=== PATIENT | female | born 1985 | race Caucasian/White ===

== ENCOUNTER 2018-03-26 06:55 | Inpatient (IN) | payer BC, SELFPAY ==
[2014-07-31 07:37] VITALS: BMI 43.2
[2018-03-26] MEDS: Lactated Ringers 1,000 ML 50 ML IV ×4 (08:00→23:38)
[2018-03-26] MEDS: Oxytocin 30 units/NS 500 ml 30 UNITS/500 ML IV.SOLN IV (08:15)
[2018-03-26 08:27] LABS: Hematocrit 35.4 % (37-47); Hemoglobin 11.2 g/dl (12.0-15.0); Mean Corp Hgb Conc 31.6 g/gl (32-36); Mean Corpuscular Volume 82.1 fL (81-99); Platelet Count 95 K/mm3 (150-450); RBC Distribution Width CV 14.2 % (11.6-14.6); RBC Distribution Width SD 42.9 fl (35.1-43.9); Red Blood Count 4.31 M/mm3 (4.2-5.4); White Blood Count 4.1 K/mm3 (4.4-11.0)
[2018-03-26 08:28] LABS: Scan Indicated on CBC? Y/N YES- FLAGS NOTED
[2018-03-26 08:41] VITALS: BMI 45.3
[2018-03-26 08:42] LABS: Differential Comment SCANNED
[2018-03-26] MEDS: 0.9% Normal Saline 100 ML IV.SOLN. INTRA-UTER (09:15)
[2018-03-26 10:07] LABS: AST(SGOT) 10 U/L (15-37); Alanine Aminotransfer ALT/SGPT 14 U/L (13-56); Creatinine, Serum 0.44 mg/dL (0.55-1.02); EST Glomerular Filtration Rate 175 mL/min (>60); Est Glom Filt Rate - Afr Amer 211 mL/min (>60); Estimated Creatinine Clearance 149.03 ml/min; Uric Acid 4.3 mg/dL (2.6-6.0)
[2018-03-26 11:47] LABS: Hematocrit 36.5 % (37-47); Hemoglobin 11.6 g/dl (12.0-15.0); Mean Corp Hgb Conc 31.8 g/gl (32-36); Mean Corpuscular Volume 81.7 fL (81-99); Mean Platelet Vol. 12.5 fl (6.2-12.0); Platelet Count 106 K/mm3 (150-450); RBC Distribution Width CV 14.1 % (11.6-14.6); RBC Distribution Width SD 42.3 fl (35.1-43.9); Red Blood Count 4.47 M/mm3 (4.2-5.4); White Blood Count 4.5 K/mm3 (4.4-11.0)
[2018-03-26 11:48] LABS: Scan Indicated on CBC? Y/N YES- FLAGS NOTED
[2018-03-26 11:51] LABS: International Normalized Ratio 0.9; Prothrombin Time (Protime)PT. 12.6 SECONDS (11.7-14.9)
[2018-03-26 11:52] LABS: Partial Thromboplast Time 27.2 Seconds (24.1-36.2)
[2018-03-26 12:03] LABS: Differential Comment SCANNED
[2018-03-26 12:06] LABS: Bedside Glucose 99 mg/dL (70-110)
[2018-03-26 13:05] LABS: Bedside Glucose 98 mg/dL (70-110)
[2018-03-26] MEDS: fentaNYL-bupivacaine (epidural) 100 ML BAG EPIDURAL ×3 (14:15→22:46)
[2018-03-26] MEDS: Acetaminophen 325 MG Tablet PO ×2 (16:30→21:18)
--- NOTE | 2018-03-26 16:36 | PCM.HP.OB ---
History Date of Admission: 03/26/18 Final SIMON: 04/11/18 Final SIMON Source: US <20 weeks Gestational age: 37 Weeks and 5 Days History of this : This is a 33 year-old, 4 para 2011 who presents at 37-5/7 weeks gestation which is gestational hypertension and class A1 gestational diabetes for induction of labor. She denies any visual disturbances. She just has not felt well this week and has had an intermittent mild headache but no persistent severe headache. She has had no epigastric pain but is just had some mild nausea and decreased appetite. Her has been complicated to date by gestational diabetes, but she has been well controlled with diet. A history of anxiety and depression, obesity with BMI greater than 40, hyperlipidemia, migraine headaches, allergic rhinitis Allergies Gadolinium-MRI Contrast Medium [CONTRAST] Allergy (Verified 03/26/18 08:27) Rash Latex, Natural Rubber Allergy (Verified 03/26/18 08:27) Rash Home Medications: Home Medications Fioricet 325 mg PRN PRN 07/27/14 Vits 1 tab DAILY 07/27/14 Zantac 150 mg BID 07/27/14 Zyrtec 10 mg PRN PRN 07/27/14 Ibuprofen [Motrin] 800 mg PO TID PRN PRN #60 tablet 08/02/14 Oxycodone HCl/Acetaminophen [Percocet 5/325] 1 - 2 tablet PO Q6H PRN PRN #10 tablet 08/02/14 Celexa 20 03/26/18 Prevacid 30 03/26/18 Tylenol 1,000 03/26/18 Smoking Status: Never smoker Alcohol: None Number of Fetus(es): 1 Heart Tracing: Normal baseline, moderate variability, spontaneous accelerations, no decelerations. TOCO Analysis: Irregular contractions History Past Pregnancies: Past Pregnancies Delivery Date Name GA/Weeks Outcome Route Weight Infant Gender Labor Length Anesthesia Delivery Location Provider FOB Expected Infant Delivery Method: Spontaneous Vaginal Review of Systems Constitutional: Reports: Anorexia. Denies: Chills, Fever Eyes: Denies: Blurred vision Cardiovascular: Denies: Chest Pain Respiratory: Reports: Cough. Denies: Shortness of Breath Skin: Denies: Rash Physical Exam General: Alert, Cooperative, No apparent distress Cardiovascular: Regular rate Lungs: Normal air movement Abdomen: Soft, Non Tender, Non-Distended, Gravid, Appropriate for Gestational Age Extremities:: Other - Edema, 1+, 2+ DTRs, no clonus Neurological: Cranial nerves II-XII grossly intact Assessment/Plan This is a 33 year-old, para 4 para 2011 who presents at 37-5/7 weeks gestation for induction of labor due to gestational hypertension. No evidence of preeclampsia with severe features. Labs are normal. She has a history of gestational thrombocytopenia and her platelets have been trending down and are stable today. Patient will have Pitocin and Gonzalez induction of labor along with artificial rupture membranes if needed. May have epidural if desires. May weight is less than 4500 g weekly and by ultrasound, pelvis is clinically adequate to expect vaginal delivery. Will monitor for symptoms of severe preeclampsia. In addition, will check blood sugars intermittently though they have been well controlled with diet during the .
[2018-03-26 18:06] LABS: Bedside Glucose 67 mg/dL (70-110)
[2018-03-26 18:06] LABS: Bedside Glucose 70 mg/dL (70-110)
[2018-03-26] MEDS: Ondansetron 4 MG/2 ML Vial IV (19:25)
[2018-03-26 20:56] LABS: Bedside Glucose 80 mg/dL (70-110)
[2018-03-26 21:41] LABS: Bedside Glucose 82 mg/dL (70-110)
[2018-03-26 22:41] LABS: Bedside Glucose 94 mg/dL (70-110)
[2018-03-26] MEDS: Loratadine 10 MG Tablet PO (23:38)
[2018-03-26 23:41] LABS: Bedside Glucose 96 mg/dL (70-110)
[2018-03-27 00:41] LABS: Bedside Glucose 74 mg/dL (70-110)
--- NOTE | 2018-03-27 02:12 | PLAC_PTH ---
PATIENT: CHIQUITA SHAW LOC: [facility] U#:[id number] AGE/SX: 33/F ROOM: WP016 RE03/26/[address]: Dr. Chana Fajardo MD : 1985 BED: 1 DIS: 03/28/2018 SPEC #: [id number] RECD: 03/27/18 03:10 STATUS: RUTH REDominick #: [id number] CANDY: 03/27/18 02:[address]: Chana Fajardo DEPT: SURGICAL PATHOLOGY RECD BY: Billy Correa ENTERED: 03/28/18 07:59 SP TYPE: PLACENTA OTHR DR: Dr. Eric Eckert MD Tissues: Placenta, NOS Procedures: Surgery Specimen Level V HEADER OPERATION: Vaginal delivery PRE-OP DIAGNOSIS: Hypertension, diabetic TISSUE SUBMITTED: Placenta MICROSCOPIC DIAGNOSIS [place]dez placenta (427 gm): Umbilical cord - trivascular with early acute funisitis. Placental membranes - minimal decidual chronic inflammation. Placental disc - organizing intraparenchymal hemorrhage, Yanna-Earl change and mildly increased intraparenchymal fibrin plaques and focal nonspecific chronic villitis. AM:ariana 03/29/18 MICROSCOPIC DESCRIPTION Slides are reviewed. GROSS DESCRIPTION SPECIMEN: PLACENTA / CLINICAL INFORMATION: A. Weight: 2.806 kg B. Gestational Age: 37 weeks C. Sex: Female PLACENTAL WEIGHT (POST FIXATION): 427 gm PLACENTAL DIMENSIONS: 17 x 17 x 2.5 cm PLACENTAL SHAPE: Usual ovoid PLACENTAL WEIGHT FOR GESTATIONAL AGE: Within 10-99th percentile MEMBRANES - Present A. Insertion: Marginal B. Site of rupture from edge: 3 cm from edge of placental disc C. Color of membrane: Urena-armijo D. Abnormalities: None UMBILICAL CORD - Present A. Color: Urena-armijo B. Insertion: Near central and received in two fragments. C. Length: 52 cm D. Diameter: 1.5 cm E. Number of vessels: Three F. Abnormalities: None PLACENTAL DISC - Present A. Color of surface: Urena-armijo B. surface abnormalities: None C. Maternal cotyledons: Intact with minimal tears D. Attached retro placental clot: No clot E. Cut surface: Dark red and spongy F. Lesions: Sections reveal a firm, urena-white lesion measuring 1 x 1 cm in greatest dimension. G. Separate clot: Absent SECTIONS SUBMITTED: 1. Membrane roll and umbilical cord ( end inked black) 2. Placental disc, and maternal surfaces, lesion 3. Placental disc, and maternal surfaces 4. Placental disc, and maternal surfaces AM:ariana 03/28/18 TC:3 CPT: 14381
[2018-03-27] MEDS: Oxytocin 30 units/NS 500 ml 30 UNITS/500 ML IV.SOLN 334 UNITS IV (02:15)
--- NOTE | 2018-03-27 02:33 | PCM.OB.VAG ---
Vaginal Delivery Maternal Presentation: Medically Indicated Induction Method of Induction: Pitocin, Gonzalez Bulb, Amniotomy Medical Reason for Induction: Gestational Hypertension Amniotic Membrane Rupture Type: Artificial Amniotic Fluid Description: Clear Final SIMON: 04/11/18 Gestational age: 37 Weeks and 6 Days Date of Procedure: 03/27/18 Pre-Operative Diagnosis: Labor Post-Operative Diagnosis: Same Surgery/ Procedure Performed: Spontaneous Vaginal Delivery Type of Anesthesia: Epidural Description of Procedure: A vigorous female was delivered CRISS over a second-degree perineal laceration. A loose nuchal cord x2 was easily reduced the remainder the was delivered with maternal pushing and gentle traction only in less than 15 seconds. The Pitocin infusion was initiated for active management of the third stage. The cord was clamped and cut after 1 minute. The was attended to by the waiting nursing staff. The placenta was delivered spontaneously and intact. The cervix and vagina were intact. The second-degree perineal laceration was repaired with 3-0 Vicryl suture in a running standard fashion. Sponge and needle counts were correct. A vaginal sweep was completed by me. Presentation: CRISS Placental Delivery Description: Spontaneous Placenta Disposition: [facility] Cord Vessel Description: 3 Vessels Nuchal Cord Compression: Without compression Cord Entanglement: Around neck x 2, loose Drain: Gonzalez to straight drain - Pushed out during second stage of labor. Estimated Blood Loss: 300 cc Infant A gender: Female Episiotomy Description: None Laceration: 2nd degree Medications given after delivery: IV Pitocin Complications: None
[2018-03-27] MEDS: Ibuprofen 600 MG Tablet PO ×3 (03:21→16:26)
[2018-03-27] MEDS: Acetaminophen 500 MG Tablet 1000 MG PO (03:21)
[2018-03-27] MEDS: Oxytocin 30 units/NS 500 ml 30 UNITS/500 ML IV.SOLN 167 UNITS IV (03:21)
[2018-03-27 03:39] LABS: Pathology Specimen OB SEE PATHOLOGY REPORT
[2018-03-27 03:46] LABS: Bedside Glucose 98 mg/dL (70-110)
[2018-03-27] MEDS: 0.9% Saline Lock 10 ML Syringe IV (04:45)
[2018-03-27 06:12] VITALS: BP 126/68; PULSE 72; RESP 16; TEMP 36.1
[2018-03-27 08:00] VITALS: BP 123/69; PULSE 55; RESP 18; TEMP 36.5
[2018-03-27] MEDS: Citalopram 20 MG Tablet PO (08:23)
[2018-03-27 11:35] VITALS: BP 145/76; PULSE 59; RESP 18; TEMP 36.1
[2018-03-27 16:49] VITALS: BP 144/84; PULSE 68; RESP 18; TEMP 36.3
[2018-03-27] MEDS: Phenazopyridine 95 MG Tablet 190 MG PO (17:18)
[2018-03-27 20:30] VITALS: BP 137/70; PULSE 74; RESP 18; TEMP 36.7
[2018-03-28] MEDS: Ibuprofen 600 MG Tablet PO ×2 (00:36→08:50)
[2018-03-28 00:40] VITALS: BP 147/84; PULSE 63; RESP 18; TEMP 37
--- NOTE | 2018-03-28 00:50 | NURSING ---
Pt vital signs obtained 0040 and BP elevated systolic at 147. This RN took another BP on right arm and right forearm for comparsion and systolic was 155 and 165 moments later. At this time, pt was writhing in pain rating it 8/10 from bladder spasms so plan to reassess BP at a later time when pain medication has been effective. pt was instructed to ambulate to the bathroom to void after bladder was palpated and felt distended. pt aware that the urethra/perineum will be sore and painful after the stewart bulb came out during delivery completely inflated. charge nurse aware of bladder spasms and no further interventions at this time.
[2018-03-28] MEDS: Phenazopyridine 95 MG Tablet 190 MG PO ×2 (03:15→08:48)
[2018-03-28 04:35] VITALS: BP 122/77; PULSE 77; RESP 18; TEMP 36.7
[2018-03-28 08:00] VITALS: BP 141/69; PULSE 61; RESP 16; TEMP 36.6; O2SAT 96
[2018-03-28 08:10] VITALS: BP 134/73; PULSE 56
--- NOTE | 2018-03-28 09:13 | PCM.PN.OB ---
Subjective: pain well controlled, average lochia, Some feeling of bladder spasms and leaking of urine. Not much sensation to void, but had similar PP course w/ previous delivery. Denies BRADFORD/visual changes, epigastric pain - Physical Exam General: Alert, Cooperative, No apparent distress Extremities: Edema - 2+ Vital Signs Temp Pulse Resp BP 98.1 F 77 18 122/77 H 03/28/18 04:35 03/28/18 04:35 03/28/18 04:35 03/28/18 04:35 Oxygen Delivery Method Room Air Weight: 116.12 kg Body Mass Index (BMI) 45.3 Intake and Output for Last 24 Hours 03/26/18 03/27/18 03/28/18 23:59 23:59 23:59 Intake Total 2876 / 2876 502 / 502 Output Total 500 / 500 1000 / 1000 Balance 2376 / 2376 -498 / -498 Medical Necessity - Tobacco Use Smoking Status: Never smoker Assessment/Plan PPD#1 gets HTN, bp well controlled> 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 BP stable since delivery. Patient understands the risk of preeclampsia . She agrees to monitor her blood pressures at home and contact the office if they are persistently above 150/100 or above 170/105 acutely. Addition, she understands symptoms of preeclampsia and when to call or return to the emergency room. If it is breast-feeding and doing well. Patient would like to go home today. Gestational diabetes class A1-does not need to further monitor blood sugars, will recommend 2-hour GTT after 6-week visit. gestational thrombocytopenia-recheck platelets today before she leaves just to ensure that they are stable or trending up. Will need to follow these
--- NOTE | 2018-03-28 09:23 | DCINST_ITS ---
Discharge Diet: No Restrictions Discharge Activity: Return to Normal Activity, May not drive while taking narcotic pain medications., May Shower May resume sexual activity in: 4-6 weeks Additional Activity Instructions:: Nothing in the vagina for 4-6 weeks. You may return to work/school in 6 weeks. Call your doctor if your incision/area has: Continuous Slow Oozing, Sudden Increased Bleeding, Increased Pain/ Swelling, Increased Redness, Foul Smelling Discharge Additional Instructions: If you experience any of the following, contact your healthcare provider. * Bleeding that soaks a pad every hour for 2 hours * Fever 100.4 or higher * Unrelieved incision or abdominal pain * Swelling, redness, discharge or bleeding from your incision or episiotomy site * Your incision begins to separate * Problems urinating (including inability to urinate or burning while urinating). * Visual changes * Severe headache * Flu-like symptoms * Pain or redness in one of both of your breasts * Pain, warmth, tenderness or swelling in your legs, especially the calf area * Frequent nausea and vomiting * Symptoms of depression or anxiety If you experience any of the following, call 911 or go to the nearest Emergency Room. * Chest pain * Problems breathing * Seizure activity * Partial or complete paralysis of a body part, slurred speech, weakness or drooping of the face, or a sudden inability to walk or hold your balance Monitor your blood pressure 2-3 times a day and call the office if persistently >150/95, or immediately if > 170/105 Allergies/Adverse Reactions: Allergies Gadolinium-MRI Contrast Medium [CONTRAST] Allergy (Verified 03/26/18 08:27) Rash Latex, Natural Rubber Allergy (Verified 03/26/18 08:27) Rash Medications to take at Discharge Vits 1 tab DAILY 07/27/14 Zyrtec 10 mg PRN PRN 07/27/14 Prevacid 30 03/26/18 Tylenol 1,000 03/26/18 Citalopram [Celexa] 20 mg PO DAILY tablet 03/28/18 Famotidine [Pepcid] 20 mg PO BID PRN tablet 03/28/18 Hydrocodone/Acetaminophen [[place] 5-325 Tablet] 1 each PO Q6H PRN PRN 4 Days #10 tablet 03/28/18 Ibuprofen [Motrin] 800 mg PO TID PRN PRN #60 tablet 03/28/18 Loratadine [Claritin] 10 mg PO DAILY PRN PRN tablet 03/28/18 The following prescriptions were given: Hydrocodone/Acetaminophen [[place] 5-325 Tablet] 1 each PO Q6H PRN PRN 4 Days #10 tablet PRN Reason: Severe Pain (-11/17) Ibuprofen [Motrin] 800 mg PO TID PRN PRN #60 tablet PRN Reason: Pain Please Follow Up With: Chana Fajardo MD - [phone] When: Call to make an appointment with your doctor in 6 weeks. Schedule a follow up for your blood pressure at the end of this week or in 1 week. Primary Care Physician: Eric Eckert [Primary Care Provider] - Test Results: Test results from this visit will be discussed in further detail at your follow- up appointment, if applicable.
[2018-03-28] MEDS: Citalopram 20 MG Tablet PO (10:17)
[2018-03-28 11:09] LABS: Hematocrit 31.8 % (37-47); Hemoglobin 9.9 g/dl (12.0-15.0); Mean Corp Hgb Conc 31.1 g/gl (32-36); Mean Corpuscular Hgb 26.1 pg (27.0-32.0); Mean Corpuscular Volume 83.9 fL (81-99); Mean Platelet Vol. 13.6 fl (6.2-12.0); Platelet Count 91 K/mm3 (150-450); RBC Distribution Width CV 14.3 % (11.6-14.6); RBC Distribution Width SD 42.7 fl (35.1-43.9); Red Blood Count 3.79 M/mm3 (4.2-5.4); White Blood Count 4.5 K/mm3 (4.4-11.0)
[2018-03-28 11:11] LABS: Scan Indicated on CBC? Y/N NO
[2018-03-28] MEDS: Acetaminophen 500 MG Tablet 1000 MG PO (13:03)
[2018-03-28 14:15] VITALS: BP 131/75; PULSE 85; RESP 18; TEMP 36.6; O2SAT 96
--- NOTE | 2018-03-28 14:21 | CASEMGMT ---
Addendum entered and electronically signed by Bianka Orellana 03/28/18 17:19: Reviewed and approve CLINICAL LAB SCIENTIST student internet marketing analyst documentation below. -ALAN Castillo, [employer] Original Note: Social Work Labor and Delivery Referral date:03/27/2018 Referral time: 0750 Referred by: Mikki Guerra Date of Intervention: 03/28/2018 Time of Intervention: 11am Reason for Referral: history of maternal depression History obtained from: medical record, mother of baby (MICHELLE) Renee Del Cid Household composition: MOB is living with ARVIND Romreo and two daughters Bayron who is 10 years old and Janae who is 3 years old. MOB reports no issues with domestic violence or safety concerns. Patient's parent/guardian status: FOB and MOB have been together for over 15 years. MOB and FOB have three children together after the of baby Grady and do not have other children from previous relationships. Medical History: MICHELLE is G4:P2 to 3 after of baby. MICHELLE has previous diagnoses of anxiety, depression, and gestational diabetes. Baby Grady was born 03/[birth year]/18 at 6lbs and 6oz with scores of 8 and 9. care began at 7 weeks. 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 Supplies: MICHELLE reports to have car seat, crib, clothing, diapers, wipes, bottles, formula, and a breast pump. Childcare/Caregiver(s): MICHELLE plans to be primary caregiver. ARVIND will also be caregiver. Transportation: MOB expressed no issues with transportation. Programs/Agencies Involved: MOB and FOB are not involved with any agencies due to high income. MOB denied [facility] referral. Children Services/Legal Issues: There was no discussion or indication of previous or current legal issues or involvement with children services. Behavioral Health Issues: Mental Health History: MICHELLE has been diagnosed with depression and takes Celexa daily as treatment. MICHELLE was not on medication since 2013 but near [place] during MOB requested to restart medication. MICHELLE also reports to have anxiety and the Celexa prescription is also treatment. MICHELLE has Ativan as back-up for anxiety. Denies use of this prescription during . MOB denies any past or present thoughts of self harm, harming others, or attempts for suicide. Substance Abuse History: MOB denies any substance abuse history. Family History: MOB did not discuss or identify any concerns with family history. Drug Screens: Negative drug screen at [facility] visit on 08/24/17 Family/Social Stressors: MOB did not report any social stressors. Support Systems: MOB reports FOB to be main support. Depression/Shaken Baby/Safe Sleeping: MOB and social work internet marketing analyst reviewed safe sleeping, shaken baby, and PPD. MOB was already very educated as evidenced by her responses. PPD packet information reviewed and provided. ASSESSMENT: MOB was in room with baby Grady alone. MOB had baby in crib at bedside and would often glance and smile at baby. MOB was calm and pleasant during conversation. MOB reported necessary general information to social work internet marketing analyst. MOB explained history with usage of medication for depression and anxiety and said she is very self aware and knew when it was time to restart Celexa during . MOB does not plan to stop medication again. MOB denied any PPD history with other births. MOB was receptive to PPD packet information and was attentive. MICHELLE is confident to return home as her has two weeks off work to help. PLAN: MOB to go home with baby with baby. [facility] packet, [facility] information, and PPD packet provided to MOB
--- NOTE | 2018-03-28 14:35 | NURSING ---
Pre-eclampsia signs and symptoms sheet given with discharge and pt. verbalized understanding. States she checks BP with own cuff at home. Follow up later this week in office.
== END 2018-03-28 14:25 | disposition home or self-care (01) | DRG 806 ==
PROVIDERS: Admitting Provider Obstetrics & Gynecology; Family Provider Internal Medicine Infectious Disease; PCP Internal Medicine Infectious Disease; Referring Provider Obstetrics & Gynecology; Visit Provider Obstetrics & Gynecology
DX: O13.4 Gestational [pregnancy-induced] hypertension without significant proteinuria, complicating childbirth (principal); O99.12 Other diseases of the blood and blood-forming organs and certain disorders involving the immune mechanism complicating childbirth; Z37.0 Single live birth; Z3A.37 37 weeks gestation of pregnancy; O70.1 Second degree perineal laceration during delivery; O69.81X0 Labor and delivery complicated by cord around neck, without compression, not applicable or unspecified; O24.429 Gestational diabetes mellitus in childbirth, unspecified control; O99.214 Obesity complicating childbirth; E66.9 Obesity, unspecified; Z71.3 Dietary counseling and surveillance; E78.5 Hyperlipidemia, unspecified; O99.344 Other mental disorders complicating childbirth; F32.9 Major depressive disorder, single episode, unspecified; F41.9 Anxiety disorder, unspecified; G43.909 Migraine, unspecified, not intractable, without status migrainosus; D69.6 Thrombocytopenia, unspecified
CPT/HCPCS: 59025; 59050; 82565; 82962; 84450; 84460; 84550; 85027; 85610; 85730; 86850; 86900; 88307; 99218; J7120; A4216; G0378; J2405